=== PATIENT | female | born 1955 | race Caucasian/White ===

== ENCOUNTER 2017-12-02 00:23 | Inpatient (IN) | payer BC ==
[2017-12-01 12:27] LABS: INR 0.99
[~2017-12-02] VITALS: Ht 165.1 cm; Wt 68.9 kg
[2017-12-02] VITALS (11 sets, daily range): BP systolic 104–141; BP diastolic 61–84
[~2017-12-02 00:23] MED LIST: CITA-145 PO; LEVO25TA57 PO
[2017-12-02] MEDS ORDERED: fentaNYL CITR 250 MCG/5 ML AMP ONE (10:31)
[2017-12-02] MEDS ORDERED: DEXAMETHASONE SOD PHOS 10MG/ML ONE (10:32)
[2017-12-02] MEDS ORDERED: PROPOFOL EMUL(*) 10MG/ML 20 ML 20 ML ONE (10:32)
[2017-12-02] MEDS ORDERED: ONDANSETRON 4 MG/2 ML VIAL ONE (10:32)
[2017-12-02] MEDS ORDERED: KETAMINE HCL 200 MG/20 ML MDV ONE (10:34)
[2017-12-02] MEDS ORDERED: ROPIVACAINE 0.2% 20 ML VIAL ONE (10:38)
[2017-12-02] MEDS ORDERED: LIDOCAINE 2% JELLY 5 ML TUBE ONE (10:44)
[2017-12-02] MEDS ORDERED: CLINDAMYCIN 900 MG/D5W 50 ML 50 ML IVPB ONE (11:30)
[2017-12-02] MEDS ORDERED: MIDAZOLAM 2 MG/2 ML VIAL IVP PRN (11:30)
[2017-12-02] MEDS ORDERED: FAMOTIDINE 20 MG TAB PO ONE (11:30)
[2017-12-02] MEDS ORDERED: TRANEXAMIC AC 1000 MG/10ML SDV 1,000 MG in DEXTROSE 5% 50 ML BAG 50 ML IV ONE (11:30)
[2017-12-02] MEDS ORDERED: LIDOCAINE/SOD BICARB 8.4% SYR ID ONE (11:30)
[2017-12-02] MEDS ORDERED: NORMOSOL R SOLN(*) 1000 ML BAG 1,000 ML IV PRN ×2 (11:30→14:05)
[2017-12-02] MEDS ORDERED: ACETAMINOPHEN 500 MG TAB PO ONE (11:30)
[2017-12-02] MEDS ORDERED: PREGABALIN 150 MG CAPSULE PO ONE (11:30)
[2017-12-02] MEDS ORDERED: ROPIVACAINE 0.2% 400 MG/200ML 250 ML CONINFUS ONE (11:30)
[2017-12-02] MEDS ORDERED: cloNIDine EPIDUR INJ 100MCG/ML 40 MCG, ROPIVACAINE 0.5% 20 ML VIAL 25 ML, EPINEPHrine H... INJ ONE (11:30)
[2017-12-02] MEDS ORDERED: ROCURONIUM BROM 10 MG/ML 5 ML ONE (12:20)
[2017-12-02] MEDS ORDERED: HYDROmorphone HCL 2 MG/ML SDV ONE (12:23)
[2017-12-02] MEDS ORDERED: SUGAMMADEX SOD 200 MG/2 ML SDV ONE (12:39)
[2017-12-02] MEDS ORDERED: BISACODYL 10 MG SUPP PR PRN (14:05)
[2017-12-02] MEDS ORDERED: PROMETHAZINE 25 MG/ML 1 ML AMP IVP PRN (14:05)
[2017-12-02] MEDS ORDERED: FLUSH 10 ML SYR IVP PRN (14:05)
[2017-12-02] MEDS ORDERED: MORPHINE 4 MG/ML SDV IVP PRN (14:05)
[2017-12-02] MEDS ORDERED: ZOLPIDEM TARTRATE 5 MG TAB PO PRN (14:05)
[2017-12-02] MEDS ORDERED: ONDANSETRON 4 MG/2 ML VIAL IVP PRN (14:05)
[2017-12-02] MEDS ORDERED: MAGNESIUM HYDROXIDE* 30ML UDCP PO PRN (14:05)
[2017-12-02] MEDS ORDERED: fentaNYL CITR 100 MCG/2 ML AMP ONE (14:41)
--- NOTE | 2017-12-02 15:09 | RADIOLOGY IMAGING REPORT ---
FACILITY: [facility] - [place] PATIENT NAME: Alida Nguyen : 1955 MR: [id number] V: [id number] EXAM DATE: ORDERING PHYSICIAN: JAN CARRASCO TECHNOLOGIST: Location: [facility] Patient: Alida Nguyen : 1955 Visit/Account:[id number] Date of Sevice: 12/02/2017 Exam type: KNEE LIMITED RIGHT History: POST OP R TKA Comparison: None. Findings: Two views of the right knee demonstrate a right knee arthroplasty in good anatomic alignment. Soft t issue gas projects over the anterior aspect this postoperative knee IMPRESSION: 1. As above Report Dictated By: Elvia Miguel MD at 12/02/2017 3:04 PM Report E-Signed By: Elvia Miguel MD at 12/02/2017 3:04 PM WSN:[id number]
--- NOTE | 2017-12-02 15:51 | Hospitalist Consultation ---
History of Present Illness Requesting Physician Dr. Polo Reason for Consult Medical Management Chief Complaint s/p right knee replacement History of Present Illness She was admitted s/p right knee replacement. It is reported the surgery went well and without complication. History Problems: (1) Depression Status: Chronic (2) Hypothyroidism Status: Chronic Home Meds Reported Medications Citalopram Hydrobromide (CITALOPRAM HBR) 20 Mg Tablet, 40 MG PO QDAY, #5 TAB 11/29/17 Levothyroxine Sodium (SYNTHROID) 25 Mcg Tablet, 25 MCG PO QDAY 11/25/17 Allergies: Coded Allergies: Cephalosporins (Verified Allergy, Severe, SEVERE HIVES, 11/29/17) Penicillins (Verified Allergy, Severe, severe hives, 11/29/17) Sulfa (Sulfonamide Antibiotics) (Verified Allergy, Severe, SEVERE HIVES, 11/29/17) codeine (Verified Allergy, Mild, FEELS GOOFY/WEIRD, 11/29/17) Patient History: FH: [place] (myocardial infarction) FATHER, Pacemaker MOTHER, Smoking Status: Never Smoker Caffeine Intake: Coffee, Tea Hx Alcohol Use: No Hx Substance Use Disorder: No Social Drug Use: Never History of IV Drug Use: No Review of Systems All Systems Reviewed/Normal: Yes, Except as Noted Musculoskeletal: Pain (right knee) Exam Vital Signs Vital Signs Date Time Temp Pulse Resp B/P (MAP) Pulse Ox O2 Delivery O2 Flow Rate FiO2 12/02/17 15:33 97.7 80 16 133/79 (97) 94 Nasal Cannula 2.0 General Appearance: Alert, Awake, No Acute Distress, Afebrile Neuro: No Gross deficits Cardiovascular: Regular Rate and Rhythm Respiratory: No Respiratory Distress, Clear to Auscultation GI: Abd Soft and Non-Tender Extremities: Warm, Perfused; No Edema Psych: Alert & Oriented X3, Appropriate Mood & Affect Assessment and Plan Problems: (1) Status post right knee replacement Status: Acute Assessment & Plan: Followed by Dr. Polo. She will be placed on Aspirin for DVT prophylaxis. She has no history of DVT or PE. (2) Hypothyroidism Status: Chronic Assessment & Plan: She is on chronic treatment with Levothyroxine. (3) Depression Status: Chronic Assessment & Plan: She is on chronic treatment with Citalopram. Venous Thromboembolism Antithrombotics Is Pt On Any Antithrombotics?: No Exam Sepsis Risk: No Definite Risk JON MOSHER LOOM OPERATOR APPRENTICE Dec 02, 2017 15:51
[2017-12-02] MEDS: ACETAMINOPHEN 500 MG TAB PO SCH (16:51)
[2017-12-02] MEDS: CLINDAMYCIN(*) 600 MG/NS 50 ML IVPB SCH (20:23)
[2017-12-02] MEDS: NS(*) 0.9% 250 ML BAG 250 ML IV SCH (20:33)
[2017-12-02] MEDS: oxyCODONE HCL 5 MG CAP PO PRN (20:33)
[2017-12-02] MEDS ORDERED: NS(*) 0.9% 250 ML BAG 250 ML ONE (20:35)
[2017-12-03] MEDS: ACETAMINOPHEN 500 MG TAB PO SCH ×3 (00:58→17:03)
[2017-12-03] MEDS: KETOROLAC TROM 10MG TAB PO PRN ×2 (01:11→18:26)
[2017-12-03] MEDS: NS(*) 0.9% 250 ML BAG 250 ML IV SCH ×2 (03:30→11:15)
[2017-12-03] MEDS: CLINDAMYCIN(*) 600 MG/NS 50 ML IVPB SCH ×2 (03:41→11:55)
[2017-12-03] MEDS: oxyCODONE HCL 5 MG CAP PO PRN ×5 (03:45→21:59)
[2017-12-03 03:46] VITALS: BP 122/67
[2017-12-03] MEDS: LEVOTHYROXINE SOD 0.025 MG TAB PO SCH (06:07)
[2017-12-03 07:51] VITALS: BP 118/37
[2017-12-03] MEDS: ASPIRIN 325 MG TAB PO SCH (08:14)
[2017-12-03] MEDS: CITALOPRAM HYDROBROM 20 MG TAB PO SCH (08:14)
--- NOTE | 2017-12-03 09:07 | CARSON TKA ---
EVENT DATE: December 02, 2017 SURGEON: Girma Polo MD ANESTHESIOLOGIST: Brayan Devine MD ANESTHESIA: Right adductor canal block followed by general. THIRD MILLER: Claus Alexandra PA-C PREOPERATIVE DIAGNOSIS Right knee degenerative joint disease. POSTOPERATIVE DIAGNOSIS Right knee degenerative joint disease. PROCEDURE PERFORMED Right total knee arthroplasty. IMPLANTS Micro-Port Medial Pivot CS System with a 4 femur, 3 tibia, 3+/10mm CS insert, 8x29 symmetric patella. Femur cut 6 degrees valgus, 10 mm. We also utilized 50 cc of our standard Toradol/ropivacaine cocktail, two packages of Wallis Blue Cement and ZipLine Wound Closure System. SPECIMEN None. COMPLICATIONS None. ESTIMATED BLOOD LOSS Less than 200 cc. OPERATION The patient received appropriate preoperative antibiotics and was brought to the OR, where Dr. Devine performed right adductor canal block followed by general. The right lower extremity was prepped and draped in the usual sterile fashion. A midline incision was made followed by medial parapatellar arthrotomy. Exposure was carried out in the medial tibial plateau in a subperiosteal manner to a level of the semimembranosus insertion. Fat pad was excised. Lateral gutter adhesions were released, patella released and everted. The knee was brought up to hyperflexion. We noted grade 3 changes in the patellofemoral compartment, grade 3 and 4 changes in the medial compartment. The remaining articular cartilage was removed from the distal femoral condyles with sagittal saw and ACL and PCL released subperiosteally by Bovie. Step-cut drill was utilized to broach the femoral canal followed by placing our distal femoral alignment guide, setting the cutting block up at 6 degrees valgus, 10 mm and with care taken to protect the soft tissue. The distal cut was made. 3-degree external rotation sizing jig was then placed, referencing off the anterior flange, epicondyles and posterior condyles and the 3-degree external rotation holes were drilled and femur was #4. #4 cutting block was then positioned as well as Z-retractors to protect the soft tissues and we made our four cuts. The tibia was brought anterior into femur with appropriate retractors. Step-cut drill was utilized to broach the tibial canal. Intramedullary tibial guide was then positioned, which referenced for our slope and we set up an 8/9 mm cut off the lateral tibial plateau and set up for rotation and block was pinned into place. Tibial cut was then made with appropriate retractors. The stump of the ACL and PCL and medial and lateral meniscus were removed by Bovie followed by removing posterior osteophytes with curved osteotome and Mcgregor elevator to elevate the capsule. Trial tibial baseplate #3 was then placed, referencing for the instrumentation and pinned into place. #10 mm CS insert was then placed and #4 femur, which achieved full extension. Flexion was limited only by body habitus and she was stable to varus/valgus stress and at anterior drawer. The knee was brought into full extension and patella was sized to 21 mm and this was cut down utilizing the 6 mm guide to a flat surface. Peg hole guide was positioned inferiorly medially. Peg holes were drilled for 29x8 symmetric patella, which was placed. The knee was then flexed and peg holes drilled for the femur and placed and trochlear chip cut and then placed. Again, we had the aforementioned range of motion and stability and the patella tracked well. The patellofemoral and tibial insert were then removed. Appropriate retractors were placed. We placed our tibial keel tower, which was cut, reamed and punched and this instrumentation was removed. Bone plug was placed in the distal femur. The knee was brought in full extension and was copiously irrigated by pulse lavage. We mixed two packages of Wallis Blue Cement. We then injected 10 cc of our cocktail into the posterior capsule followed by placing the knee in appropriate position. We cemented the tibia placed our 10 mm 3+ CS insert and #4 femur. Excess cement was removed. The knee was brought to full extension with axial compression while we cemented the patella. It took 13 minutes for the cement to cure. Again, we had the aforementioned range of motion and stability. We copiously irrigated once more and injected our cocktail into the distal quad mechanism and then closed the arthrotomy with #2 Vicryl followed by 2-0 Vicryl for the subcutaneous tissues and ZipLine Wound Closure for the skin. A compressive dressing was applied. The patient was extubated and taken to recovery in stable. The hospitalist team was consulted for medical management and anticoagulation and PT for rehab. MANJEET
--- NOTE | 2017-12-03 10:41 | Hospitalist Progress Note ---
Subjective Progress Notes Subjective She has no complaints this morning. She had no acute events overnight. Patient Complains of: Cardiovascular: No: Chest Pain Respiratory: No: Shortness of Breath Physical Exam Vital Signs Date Time Temp Pulse Resp B/P (MAP) Pulse Ox O2 Delivery O2 Flow Rate FiO2 12/03/17 10:31 98.5 62 89 Nasal Cannula 1.0 12/03/17 07:51 22 118/37 (64) Intake and Output 12/03/17 06:59 Intake Total 4650 ml Output Total 100 ml Balance 4550 ml Intake Oral 950 ml IV Total 1900 ml Other 1800 ml Output Estimated Blood Loss 100 ml # Voids 4 General Appearance: Alert, Awake, No Acute Distress, Afebrile Neuro: No Gross deficits Cardiovascular: Regular Rate and Rhythm Respiratory: No Respiratory Distress, Clear to Auscultation Psych: Alert & Oriented X3, Appropriate Mood & Affect Assessment and Plan Problems: (1) Status post right knee replacement Status: Acute Assessment & Plan: Followed by Dr. Polo. She will be placed on Aspirin for DVT prophylaxis. She has no history of DVT or PE. (2) Hypothyroidism Status: Chronic Assessment & Plan: She is on chronic treatment with Levothyroxine. (3) Depression Status: Chronic Assessment & Plan: She is on chronic treatment with Citalopram. Exam Sepsis Risk: No Definite Risk JON MOSHER RECRUITMENT COORDINATOR Dec 03, 2017 10:41
[2017-12-03 12:00] VITALS: BP 129/67
[2017-12-03 15:27] VITALS: BP 131/73
[2017-12-03 15:41] VITALS: Ht 165.1 cm; Wt 68.9 kg
[2017-12-03 19:50] VITALS: BP 140/72
[2017-12-04 00:30] VITALS: BP 139/81
[2017-12-04] MEDS: ACETAMINOPHEN 500 MG TAB PO SCH ×2 (00:34→09:07)
[2017-12-04] MEDS: KETOROLAC TROM 10MG TAB PO PRN (00:45)
[2017-12-04 03:05] VITALS: BP 134/78
[2017-12-04] MEDS: oxyCODONE HCL 5 MG CAP PO PRN ×2 (03:19→08:12)
[2017-12-04] MEDS: LEVOTHYROXINE SOD 0.025 MG TAB PO SCH (05:21)
[2017-12-04 07:47] VITALS: BP 120/78
[2017-12-04] MEDS ORDERED: ASPI-757 PO (08:11)
[2017-12-04] MEDS ORDERED: OXYC5CAP21 PO (08:17)
[2017-12-04] MEDS: ASPIRIN 325 MG TAB PO SCH (09:07)
[2017-12-04] MEDS: CITALOPRAM HYDROBROM 20 MG TAB PO SCH (09:13)
--- NOTE | 2017-12-04 11:11 | Hospitalist Progress Note ---
Subjective Progress Notes Subjective She has no complaints this morning. She had no acute events overnight. Patient Complains of: Cardiovascular: No: Chest Pain Respiratory: No: Shortness of Breath Physical Exam Vital Signs Date Time Temp Pulse Resp B/P (MAP) Pulse Ox O2 Delivery O2 Flow Rate FiO2 12/04/17 07:58 84 12/04/17 07:47 98.1 73 16 120/78 (92) Nasal Cannula 1.0 Intake and Output 12/04/17 06:59 Intake Total 1350 ml Balance 1350 ml Intake Oral 1300 ml IV Total 50 ml # Voids 7 General Appearance: Alert, Awake, No Acute Distress, Afebrile Neuro: No Gross deficits Cardiovascular: Regular Rate and Rhythm Respiratory: No Respiratory Distress, Clear to Auscultation GI: Soft and Non-Tender Extremities: Warm, Perfused; No Edema Psych: Alert & Oriented X3, Appropriate Mood & Affect Assessment and Plan Problems: (1) Status post right knee replacement Status: Acute Assessment & Plan: Followed by Dr. Polo. She will be placed on Aspirin for DVT prophylaxis. She has no history of DVT or PE. (2) Hypothyroidism Status: Chronic Assessment & Plan: She is on chronic treatment with Levothyroxine. (3) Depression Status: Chronic Assessment & Plan: She is on chronic treatment with Citalopram. Exam Sepsis Risk: No Definite Risk JON MOSHERP Dec 04, 2017 11:11
== END 2017-12-04 11:20 | disposition home or self-care (01) | DRG 470 ==
LOC: OR 00:23 → INTOOBSV 15:33 → MED 15:33 → OBSVTOIN 15:33
PROVIDERS: ADMIT Orthopaedic Surgery; ATTEND Orthopaedic Surgery
PROC: 0SRC0J9 Replacement of Right Knee Joint with Synthetic Substitute, Cemented, Open Approach (ICD-10-PCS; principal; 2017-12-02 11:55)
DX: M17.11 Unilateral primary osteoarthritis, right knee (principal); F32.9 Major depressive disorder, single episode, unspecified; E03.9 Hypothyroidism, unspecified; Z88.2 Allergy status to sulfonamides; Z88.0 Allergy status to penicillin; Z88.8 Allergy status to other drugs, medicaments and biological substances; Z90.710 Acquired absence of both cervix and uterus
CPT/HCPCS: 36415; 76942; 85610; 86850; 86900; 86901; 97161; C1713; C1776; J0171; J0735; J1100; J1170; J1885; J2250; J2405; J2704; J2795; J3010; J3490; J7050; J7060